=== PATIENT | female | born 1990 | race Caucasian/White ===

== ENCOUNTER 2017-02-21 18:30 | Emergency (ER) | payer OTHER ==
[~2017-02-21] VITALS: Ht 167.6 cm; Wt 88.4 kg
[2017-02-21 19:23] LABS: HEMATOCRIT 41.5 % (36.0-46.0); MCH 27.5 PG (29.0-34.0); MCHC 32.5 G/DL (30.0-36.0); MCV 84.5 FL (83-99); MEAN PLAT.VOLUME 10.7 uM^3 (9.5-12.4); PLATELET COUNT 273 K/uL (156-360); RBC DIS.WIDTH-CV 12.4 % (11.8-14.6); RBC DIS.WIDTH-SD 37.8 % (39-53); RED BLOOD COUNT 4.91 M/uL (3.80-5.20)
[2017-02-21 19:53] LABS: POTASSIUM 4.1 mEq/L (3.7-5.4); SODIUM 143 mEq/L (136-147)
[2017-02-21 19:55] LABS: GLUCOSE 91 mg/dL (70-99)
[2017-02-21 19:56] LABS: ANION GAP 9 MEQ/L (2-14)
[2017-02-21 19:58] LABS: GFR ESTIMATE (CALCULATED) > 59 mL/min/
[2017-02-21 19:59] LABS: UREA NITROGEN (BUN) 9 mg/dL (9-23)
[2017-02-21 20:01] LABS: TROP-I INTERPRETATION NEGATIVE; TROPONIN-I < 0.01 ng/mL (0.0-0.30)
[2017-02-21 20:16] LABS: CHLORIDE 109 mEq/L (99-109)
[2017-02-21 22:49] LABS: TROP-I INTERPRETATION NEGATIVE; TROPONIN-I < 0.01 ng/mL (0.0-0.30)
[2017-02-21 23:01] VITALS: BP 124/90
== END 2017-02-21 22:45 | disposition home or self-care (01) ==
LOC: EME 18:30
PROVIDERS: Physician Assistant Medical
DX: R07.9 Chest pain, unspecified (principal); K29.70 Gastritis, unspecified, without bleeding; K21.9 Gastro-esophageal reflux disease without esophagitis; E05.90 Thyrotoxicosis, unspecified without thyrotoxic crisis or storm; F17.200 Nicotine dependence, unspecified, uncomplicated
CPT/HCPCS: 71020; 80048; 84484; 85027; 93005; 99281; 99284

== ENCOUNTER → 2017-02-21 | Outpatient (CLI) | payer OTHER ==
[~2017-02-21] VITALS: Ht 167.6 cm; Wt 89.8 kg
[~2017-02-21] MED LIST: FLEXERIL5 MG PO; LEVOTHYROXINE88 MCG PO; NEXIUM40 MG PO; PRENATAL TABLE1 EACH PO; SYNTHROID112 MCG PO; TRAMADOL HCL50 MG PO; ZANTAC150 MG PO; ZOFRAN4 MG PO
== END | disposition home or self-care (01) ==
LOC: AMB 10:46
PROC: 0DB68ZX Excision of Stomach, Via Natural or Artificial Opening Endoscopic, Diagnostic (ICD-10-PCS; principal; 2017-02-21)
DX: K29.50 Unspecified chronic gastritis without bleeding (principal); B96.81 Helicobacter pylori [H. pylori] as the cause of diseases classified elsewhere; E06.3 Autoimmune thyroiditis; G89.29 Other chronic pain; K21.9 Gastro-esophageal reflux disease without esophagitis; E66.9 Obesity, unspecified; Z87.891 Personal history of nicotine dependence; Z68.31 Body mass index [BMI] 31.0-31.9, adult; Z82.49 Family history of ischemic heart disease and other diseases of the circulatory system; Z83.49 Family history of other endocrine, nutritional and metabolic diseases; Z81.8 Family history of other mental and behavioral disorders
CPT/HCPCS: 88305; 88342 TC; J2250; J3010